=== PATIENT | female | born 1985 | race Two or more races ===

== ENCOUNTER 2019-03-19 11:03 | Outpatient (CLI) | payer OTHER ==
[~2019-03-19 11:03] MED LIST: TYLENOL-CODEINE1 TAB PO
== END 2019-03-19 12:30 | disposition home or self-care (01) ==
LOC: PRENATAL 11:03
DX: O35.3XX0 Maternal care for (suspected) damage to fetus from viral disease in mother, not applicable or unspecified (principal); O09.812 Supervision of pregnancy resulting from assisted reproductive technology, second trimester; O34.42 Maternal care for other abnormalities of cervix, second trimester; O28.3 Abnormal ultrasonic finding on antenatal screening of mother; O65.5 Obstructed labor due to abnormality of maternal pelvic organs

== ENCOUNTER → 2019-06-15 | Outpatient (CLI) | payer OTHER | END | disposition home or self-care (01) | LOC: PRENATAL 09:00 | DX: O26.843 Uterine size-date discrepancy, third trimester (principal); O09.813 Supervision of pregnancy resulting from assisted reproductive technology, third trimester; O34.43 Maternal care for other abnormalities of cervix, third trimester; O28.3 Abnormal ultrasonic finding on antenatal screening of mother ==

== ENCOUNTER → 2019-06-25 | Outpatient (CLI) | payer OTHER | END | disposition home or self-care (01) | LOC: PRENATAL 08:30 | DX: O28.3 Abnormal ultrasonic finding on antenatal screening of mother (principal); O09.813 Supervision of pregnancy resulting from assisted reproductive technology, third trimester; O43.93 Unspecified placental disorder, third trimester; O32.9XX1 Maternal care for malpresentation of fetus, unspecified, fetus 1 ==

== ENCOUNTER 2019-07-12 06:00 | Outpatient (CLI) | payer OTHER ==
[2019-07-12] MEDS ORDERED: PRENATABS RX T1 EACH PO (13:38)
== END 2019-07-12 06:05 | disposition home or self-care (01) ==
LOC: LAB 06:00
DX: Z01.812 Encounter for preprocedural laboratory examination (principal); Z3A.37 37 weeks gestation of pregnancy; O36.5130 Maternal care for known or suspected placental insufficiency, third trimester, not applicable or unspecified; O64.1XX0 Obstructed labor due to breech presentation, not applicable or unspecified

== ENCOUNTER 2019-07-12 12:50 | Inpatient (IN) | payer OTHER ==
[~2019-07-12] VITALS: Ht 157.5 cm; Wt 2.7 kg
[2019-07-12] MEDS ORDERED: PRENATABS RX T1 EACH PO (13:38)
[2019-07-18] MEDS ORDERED: IBUPROFEN600 MG PO (09:41)
[2019-07-18] MEDS ORDERED: CODE1TAB37 PO (09:41)
== END 2019-07-18 13:47 | DRG 788 ==
LOC: OB/GYN 07-15 07:15 → O/R 07-15 11:48 → OB/GYN 07-15 12:42
PROVIDERS: ADMIT Obstetrics & Gynecology
PROC: 4A033R1 Measurement of Arterial Saturation, Peripheral, Percutaneous Approach (ICD-10-PCS; 2019-07-15)
PROC: 4A1HXCZ Monitoring of Products of Conception, Cardiac Rate, External Approach (ICD-10-PCS; 2019-07-15)
PROC: 10D00Z1 Extraction of Products of Conception, Low, Open Approach (ICD-10-PCS; principal; 2019-07-15 07:15)
DX: O76 Abnormality in fetal heart rate and rhythm complicating labor and delivery (principal); O32.1XX0 Maternal care for breech presentation, not applicable or unspecified; O43.893 Other placental disorders, third trimester; Z3A.37 37 weeks gestation of pregnancy; Z37.0 Single live birth

== ENCOUNTER 2021-08-27 12:51 | Outpatient (CLI) | payer OTHER ==
[~2021-08-27 12:51] MED LIST changes: +CODE1TAB37 PO; +IBUPROFEN600 MG PO; +PRENATABS RX T1 EACH PO
== END 2021-08-27 14:10 | disposition home or self-care (01) ==
LOC: PRENATAL 12:51
PROVIDERS: ATTEND Obstetrics & Gynecology Maternal & Fetal Medicine
DX: O09.529 Supervision of elderly multigravida, unspecified trimester (principal); O35.0XX0 Maternal care for (suspected) central nervous system malformation in fetus, not applicable or unspecified; O99.891 Other specified diseases and conditions complicating pregnancy

== ENCOUNTER 2021-08-29 22:17 | Outpatient (CLI) | payer OTHER | END 2021-08-30 17:44 | disposition home or self-care (01) | LOC: OBS/DEL 22:17 → PRENATAL 11-19 13:00 | PROVIDERS: ATTEND Obstetrics & Gynecology | DX: O46.92 Antepartum hemorrhage, unspecified, second trimester (principal); Z3A.21 21 weeks gestation of pregnancy ==

== ENCOUNTER 2021-11-19 13:26 | Outpatient (CLI) | payer OTHER | END 2021-11-19 14:44 | disposition home or self-care (01) | LOC: PRENATAL 13:26 | PROVIDERS: ATTEND Obstetrics & Gynecology Maternal & Fetal Medicine | DX: O35.0XX0 Maternal care for (suspected) central nervous system malformation in fetus, not applicable or unspecified (principal); O26.849 Uterine size-date discrepancy, unspecified trimester; O09.529 Supervision of elderly multigravida, unspecified trimester; O34.219 Maternal care for unspecified type scar from previous cesarean delivery; Z3A.33 33 weeks gestation of pregnancy ==

== ENCOUNTER 2021-12-23 12:06 | Inpatient (IN) | payer OTHER ==
[~2021-12-23] VITALS: Ht 157.5 cm; Wt 2.7 kg
[2021-12-23] MEDS ORDERED: PEPCID AC20 MG PO (12:14)
[2021-12-26] MEDS ORDERED: NAPR500T14 PO (11:28)
[2021-12-26] MEDS ORDERED: DOCUSATE SODIU100 MG PO (11:29)
[2021-12-26] MEDS ORDERED: OXYC1TAB9 PO (11:29)
== END 2021-12-26 13:25 | disposition home or self-care (01) | DRG 785 ==
LOC: LDR 12:06 → OB/GYN 12:06
PROVIDERS: ADMIT Obstetrics & Gynecology; ATTEND Obstetrics & Gynecology
PROC: 0UB70ZZ Excision of Bilateral Fallopian Tubes, Open Approach (ICD-10-PCS; 2021-12-23)
PROC: 4A1HXCZ Monitoring of Products of Conception, Cardiac Rate, External Approach (ICD-10-PCS; 2021-12-23)
PROC: 10D00Z1 Extraction of Products of Conception, Low, Open Approach (ICD-10-PCS; principal; 2021-12-23 13:00)
DX: O34.211 Maternal care for low transverse scar from previous cesarean delivery (principal); Z3A.37 37 weeks gestation of pregnancy; Z37.0 Single live birth; Z20.822 Contact with and (suspected) exposure to COVID-19; Z30.2 Encounter for sterilization